=== PATIENT | male | born 1990 | race American Indian/Alaskan Native ===

== ENCOUNTER 2018-12-15 10:21 | Emergency (ER) | payer BC ==
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
[2018-12-15] MEDS ORDERED: IBUPROFEN PO ONE (10:54)
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
[2018-12-15 11:45] VITALS: BP 123/79
== END 2018-12-15 11:38 | disposition home or self-care (01) ==
LOC: ED 10:21
DX: M25.562 Pain in left knee (principal); M79.10 Myalgia, unspecified site; V89.2XXA Person injured in unspecified motor-vehicle accident, traffic, initial encounter; Y93.89 Activity, other specified; Y92.488 Other paved roadways as the place of occurrence of the external cause; Y99.8 Other external cause status
CPT/HCPCS: 99283